=== PATIENT | female | born 1990 | race Caucasian/White ===

== ENCOUNTER 2016-08-15 10:00 | Inpatient (IN) | payer MEDICAID ==
--- OUTSIDE RECORDS SUMMARY | 2016-08-15 10:05 | XMS REPORT | Continuity of Care Document ---
:1990 Author Organization [facility] ([facility]) [place] [address] Phone [phone] Care Team Providers Name Role Phone Ani Payankshi Primary Care Provider [phone] Source Comments This disclosure is being made pursuant to the Care Everywhere program, applicable federal and state laws, and may not contain all informaitonavailable regarding this patient.[facility] ([facility]) Active Allergies and Adverse Reactions Allergen Noted Date Severity Reactions Comments Oxycodone-Acetaminophen 04/05/2016 Nausea & Vomiting,Flushing Current Medications Prescription Sig. Disp. Refills Start Date End Date Status multivitamin with minerals PO Active Active Problems Problem Noted Date Elevated AFP 04/05/2016 Currently Estimated Date of Delivery Comments Yes 08/28/2016 Based on Last Menstrual Period Social History Tobacco Use Types Packs/Day Years Used Date Never Smoker Smokeless Tobacco: Never Used Alcohol Use Drinks/Week oz/Week Comments No Last Filed Vital Signs Vital Sign Reading Time Taken Blood Pressure 127/70 04/05/2016 2:52 PM CDT Pulse 72 04/05/2016 2:52 PM CDT Temperature 35.2 C (95.4 F) 04/05/2016 2:52 PM CDT Respiratory Rate - - Height 1.626 m (5' 4") 04/05/2016 2:52 PM CDT Weight 70.5 kg (155 lb 6.8 oz) 04/05/2016 2:52 PM CDT Body Mass Index 26.67 04/05/2016 2:52 PM CDT Oxygen Saturation - - Plan of Care Health Maintenance Due Date Last Done Comments Hepatitis B Vaccine (1 of 3 - Primary Series) 1990 HPV Vaccine (1 of 3 - Female/Unknown 3 Dose Series) 2000 Tdap Vaccine 2000 Cervical Cancer Screening 10/29/2007 Lipid Disorder Screening 10/29/2007 MMR Vaccine 10/29/2007 Td Vaccine 10/29/2007 Varicella Vaccine (1 of 2 - Adult - No Evidence of 10/29/2007 Immunity) Influenza Vaccine: Seasonal (#1) 01/18/2016 Results from Last 3 Months Not on file
[2016-08-15] MEDS ORDERED: ONDANSETRON HCL/PF 2 MG/ML VIAL IV PRN ×2 (11:32→11:37)
[2016-08-15] MEDS ORDERED: BUPIVACAINE HCL/0.9 % NACL/PF 250 ML EP PRN (11:32)
[2016-08-15] MEDS ORDERED: NALOXONE HCL 1 MG/1 ML SYRG IV PRN (11:32)
[2016-08-15] MEDS ORDERED: BUPIVACAINE HCL/PF 30 ML VIAL EP ONE (11:32)
[2016-08-15] MEDS ORDERED: RINGER'S SOLUTION,LACTATED 1,000 ML IV ONE (11:37)
[2016-08-15] MEDS ORDERED: DEXTROSE 5%-LACTATED RINGERS 1,000 ML IV PRN (11:37)
[2016-08-15] MEDS ORDERED: LIDOCAINE HCL 50 ML VIAL PERI PRN (11:37)
[2016-08-15] MEDS ORDERED: OXYTOCIN/DEXTROSE 5%-WATER 30 UNITS/500 ML BAG IV ONE ×2 (11:37→15:22)
--- NOTE | 2016-08-15 12:03 | OR ---
Anesthesia Procedure Note - Anesthesia Procedure Note Date of Service: 08/15/16 Narrative: Vital Signs - Last Taken Temp 36.7 C 08/15/16 11:35 Pulse 84 08/15/16 11:35 Resp 18 08/15/16 11:35 BP 124/75 08/15/16 11:35 Pulse Ox 98 08/15/16 11:35 08/15/16 12:02 ANESTHESIA PROCEDURE NOTE Date of Procedure: 08/15/2016. Time of procedure: 1140. Performed by: Raymond Sebastian CRNA Site Reliability Engineer: None. Preprocedure diagnosis: Active labor. Post procedure diagnosis: Same. Procedure: Insertion of labor epidural. Indications: The patient is a 25 -year-old female in active labor requesting labor epidural for pain management. Findings: See below. Details of the procedure: The patient was placed in a sitting position. DuraPrep as well as Betadine swabs 3 was applied to the patient's back. Patient was then draped in a sterile fashion. Lidocaine 1% was infiltrated to the skin and subcutaneous tissues at the level of the L3 4 interspace. The epidural space was identified using a 18-gauge Tuohy needle with loss-of- resistance technique. Epidural catheter was inserted to a depth of 12 centimeters at skin. Negative test dose was elicited using 3 mL of 1.5% preservative-free lidocaine plus epinephrine 1 200,000. The epidural catheter was then taped and secured in place. A loading dose of 8 mL of 0.25% preservative-free bupivacaine was administered to the epidural catheter after negative aspiration for blood and CSF. EBL: Minimal. Fluids: N/A. Specimen: N/A. Post procedure condition: The patient tolerated the procedure well. No complications were noted. Thank you for this consultation. Raymond Sebastian CRNA
--- NOTE | 2016-08-15 15:19 | OR ---
Operative Report - Dictated Report Narrative: Spontaneous vaginal delivery of viable female at 1428 on 08/15/2016 with Apgars 8 and 9 weighing 2469 g in DAT position. Cord clamping delayed approximately 70 seconds. Pudendal nerve block given using a total of 20 mL of 1% lidocaine prior to delivery. Placenta delivered complete, intact, with three vessel cord Estimated blood loss: less than 50 ml Lacerations: None
[2016-08-15] MEDS ORDERED: BENZOCAINE/MENTHOL 81 SPRAY CAN TP PRN (15:22)
[2016-08-15] MEDS ORDERED: oxyCODONE HCL/ACETAMINOPHEN 1 TAB TABLET PO PRN ×2 (15:22)
[2016-08-15] MEDS ORDERED: BISACODYL 10 MG SUPP.RECT RC PRN (15:22)
[2016-08-15] MEDS ORDERED: HYDROCORTISONE 30 APPL TUBE TP PRN (15:22)
[2016-08-15] MEDS ORDERED: GLYCERIN/WITCH HAZEL LEAF 40 APPL BOX TP PRN (15:22)
[2016-08-15] MEDS ORDERED: SENNOSIDES 8.6 MG TABLET PO PRN (15:22)
[2016-08-15] MEDS ORDERED: HYDROcodone/ACETAMINOPHEN 1 EACH TABLET PO PRN (18:09)
[2016-08-15] MEDS: IBUPROFEN 800 MG TABLET PO PRN (18:11)
[2016-08-15] MEDS: HYDROcodone/ACETAMINOPHEN 1 EACH TABLET PO PRN (19:01)
[2016-08-15] MEDS: DOCUSATE SODIUM 100 MG CAPSULE PO SCH (21:47)
--- NOTE | 2016-08-16 02:48 | PN ---
Subjective - Date and Time Seen Date: 08/16/16 Time: 02:47 Objective - Vitals Vitals: Last Vital Signs Temp 36.6 C 08/16/16 01:10 Pulse 74 08/16/16 01:10 Resp 16 08/16/16 01:10 BP 122/79 08/15/16 12:04 Pulse Ox 99 08/15/16 12:04 Patient denies complaints. Lochia wnl Abdomen - soft, nontender Uterus - firm, at umbilicus - 1 No calf tenderness Impression: day #1 - s/p spontaneous vaginal delivery. Plan: Continue routine care Cauti Physician Documentation - Urinary Catheter Management Urethral ([place]) Date of Insertion: 08/15/16 Time of Insertion: 12:15
[2016-08-16] MEDS: IBUPROFEN 800 MG TABLET PO PRN ×2 (07:19→18:25)
[2016-08-16] MEDS: HYDROcodone/ACETAMINOPHEN 1 EACH TABLET PO PRN ×2 (07:20→18:26)
--- NOTE | 2016-08-16 08:51 | PN ---
Progess Note - Interim Narrative: 08/16/16 08:50 progress note Subjective: The patient is doing well. She is ambulating, voiding, tolerating by mouth. She has minimal pain and moderate lochia. Objective: General: No acute distress Abdomen: Soft, nontender, fundus is firm just below the umbilicus Extremities: minimal edema, nontender to palpation Assessment and plan: day 1 Feeding: Breast Pain: Controlled with by mouth medication Routine care.
[2016-08-16] MEDS: DOCUSATE SODIUM 100 MG CAPSULE PO SCH ×2 (13:00→21:04)
[2016-08-17] MEDS: IBUPROFEN 800 MG TABLET PO PRN (07:09)
[2016-08-17] MEDS: HYDROcodone/ACETAMINOPHEN 1 EACH TABLET PO PRN (07:10)
[2016-08-17 07:44] VITALS: BP 127/79
[2016-08-17] MEDS: DOCUSATE SODIUM 100 MG CAPSULE PO SCH (08:51)
--- NOTE | 2016-08-17 08:53 | PN ---
Progess Note - Interim Narrative: 08/17/16 08:51 progress note Subjective: The patient is doing well. She is ambulating, voiding, tolerating by mouth. She has minimal pain and moderate lochia. Complaining of feeling constipated and having rectal pain. Objective: General: No acute distress Abdomen: Soft, nontender, fundus is firm just below the umbilicus Extremities: minimal edema, nontender to palpation Perineum: No edema, no evidence of external hemorrhoids, no visible lacerations Assessment and plan: day 2 Feeding: Breast Constipation: Try a stool softener and stimulant today Pain: Controlled with by mouth medication control: Mirena Routine care.
== END 2016-08-17 12:40 | disposition home or self-care (01) | DRG 775 ==
LOC: OB 10:00 → MS 19:00
PROVIDERS: ADMIT Obstetrics & Gynecology; ATTEND Obstetrics & Gynecology
PROC: 10E0XZZ Delivery of Products of Conception, External Approach (ICD-10-PCS; principal; 2016-08-15)
PROC: 4A1HXCZ Monitoring of Products of Conception, Cardiac Rate, External Approach (ICD-10-PCS; 2016-08-15)
PROC: 3E0S3CZ (ICD-10-PCS; 2016-08-15)
DX: O80 Encounter for full-term uncomplicated delivery (principal)